=== PATIENT | female | born 1960 | race American Indian/Alaskan Native ===

== ENCOUNTER 2017-03-19 14:53 | Outpatient (CLI) | payer OTHER ==
--- NOTE | 2017-03-19 16:20 | XRay Report ---
KUB: 03/19/17 CLINICAL: Abdominal pain. FINDINGS: Normal bowel gas pattern. No distended bowel and no air-fluid levels. No pneumoperitoneum. A right pelvic phlebolith. No mass or suspicious calcifications. The bones and soft tissues are normal. IMPRESSION: Negative abdomen.
== END 2017-03-19 14:54 | disposition home or self-care (01) ==
LOC: SPVIMAG 14:53
DX: R10.9 Unspecified abdominal pain (principal); I87.8 Other specified disorders of veins
CPT/HCPCS: 74018

== ENCOUNTER 2017-08-18 06:38 | Inpatient (IN) | payer OTHER ==
[2017-08-18] MEDS ORDERED: LIDOCAINE VISCOUS 2% PO ONE (07:25)
[2017-08-18] MEDS ORDERED: ALUM-MAG HYDROX-SIMETH 200-200-20MG/5ML PO ONE (07:26)
--- NOTE | 2017-08-18 07:29 | Emergency Department Report ---
HPI - General Chief Complaint: Allergic Reaction Time Seen by Provider: 08/18/17 07:14 - HPI HPI: 57-year-old female presents to the emergency department with complaint of some possible issues with her acid reflux. Since last night she was "vomiting up some acid" so she took a Zantac at 5 in the morning. Since that time she says she feels a clicking in the neck/throat that worsens when she is walking. She has a history of acid reflux and recently had a EGD and colonoscopy done by a air defense specialist, Dr. Rangel, through [facility]. She was told that she had some type of bacterial infection at that time in the intestines and went on antibiotics that she has since completed. She also is complaining of some bloating last night and took some magnesium citrate but had a satiating bowel movement this morning. She denies any fever, drooling, trismus, chest pain, shortness of breath. Her primary care physician is Dr. Jordan. ED Past Medical Hx - Past Medical History Previous Medical History?: Yes Hx Hypertension: Yes Hx Diabetes: Yes Hx GERD: Yes Additional medical history: High Cholesterol - Surgical History Past Surgical History?: Yes Hx Appendectomy: Yes Additional Surgical History: Hysterectomy, Tubal Ligation - Social History Smoking Status: Never Smoker ED Review of Systems ROS: Stated complaint: THROAT FEELS LIKE CLOSING UP Other details as noted in HPI Comment: All other systems reviewed and negative Constitutional: denies: chills, fever Eyes: denies: eye pain, eye discharge, vision change ENT: throat pain. denies: ear pain Respiratory: denies: cough, shortness of breath, wheezing Cardiovascular: denies: chest pain, palpitations Gastrointestinal: denies: abdominal pain, diarrhea Genitourinary: denies: urgency, dysuria, discharge Musculoskeletal: denies: back pain, joint swelling, arthralgia Skin: denies: rash, lesions Neurological: denies: headache, weakness, paresthesias Physical Exam - Physical Exam Vital Signs: Vital Signs 08/18/17 06:52 Temperature 98.0 F Pulse Rate 100 H Respiratory 20 Rate Blood Pressure 151/82 O2 Sat by Pulse 97 Oximetry Physical Exam: GENERAL: The patient is well-developed well-nourished. HENT: Normocephalic. Atraumatic. Patient has moist mucous membranes. Oropharynx is clear without any tonsillar hypertrophy, erythema or exudates. Mallampati of 1. There is an audible clicking sound heard from somewhere in the lower portion of the neck. No drooling or trismus. EYES: Extraocular motions are intact. Pupils equal reactive to light bilaterally. NECK: Supple. Trachea is midline. CHEST/LUNGS: Clear to auscultation. There is no respiratory distress noted. HEART/CARDIOVASCULAR: Regular. There is no tachycardia. There is no murmur. ABDOMEN: Abdomen is soft, nontender. Patient has normal bowel sounds. There is no abdominal distention. SKIN: Skin is warm and dry. NEURO: The patient is awake, alert, and oriented. The patient is cooperative. The patient has no focal neurologic deficits. The patient has normal speech. MUSCULOSKELETAL: There is no tenderness or deformity. There is no limitation range of motion. There is no evidence of acute injury. ED Course Vital Signs 08/18/17 06:52 Temperature 98.0 F Pulse Rate 100 H Respiratory 20 Rate Blood Pressure 151/82 O2 Sat by Pulse 97 Oximetry ED Medical Decision Making - Lab Data Result diagrams: 08/18/17 07:46 08/18/17 07:43 - Radiology Data Radiology results: image reviewed interpreted by me: Soft tissue of the neck does not show any foreign body or any other acute process. - Medical Decision Making Patient comes in presenting with some difficulty eating and increased acid reflux and most importantly she complains of some type of a clicking sensation in her throat that worsens with any type of exertion. She was seen in the emergency department by the [facility] [place] [facility] and the plan was going to be to do a scope/EGD to evaluate this foreign body sensation. However there was an issue with anesthesia being available so gastroenterology has asked for the patient to be admitted overnight as an observational stay and they will do the scope in the morning. - Differential Diagnosis foreign body, GERD, Malignancy Critical Care Time: No Critical care attestation.: If time is entered above; I have spent that time in minutes in the direct care of this critically ill patient, excluding procedure time. ED Disposition Clinical Impression: Foreign body sensation in throat Disposition: OP ADMIT IP TO THIS HOSP Is pt being admited?: Yes Condition: Stable Time of Disposition: 16:05
[2017-08-18 07:58] LABS: Basophils # (Auto) 0.1 K/mm3 (0.0-0.1); Basophils % (Auto) 0.6 % (0.0-1.8); Eosinophils # (Auto) 0.1 K/mm3 (0.0-0.4); Eosinophils % (Auto) 0.9 % (0.0-4.3); Hemoglobin 14.5 gm/dl (10.1-14.3); Lymphocytes # (Auto) 1.2 K/mm3 (1.2-5.4); Lymphocytes % (Auto) 13.9 % (13.4-35.0); Mean Corpuscular HGB Conc 35 % (30-34); Mean Corpuscular Hemoglobin 31 pg (28-32); Mean Corpuscular Volume 88 fl (79-97); Monocytes # (Auto) 0.5 K/mm3 (0.0-0.8); Monocytes % (Auto) 5.9 % (0.0-7.3); Platelet Count 244 K/mm3 (140-440); Red Blood Count 4.77 M/mm3 (3.65-5.03); Red Cell Distribution Width 13.5 % (13.2-15.2)
[2017-08-18 08:04] LABS: BUN/Creatinine Ratio 13; Blood Urea Nitrogen 10 mg/dL (7-17); Calcium 9.2 mg/dL (8.4-10.2); Hemolysis Index 11
--- NOTE | 2017-08-18 09:55 | XRay Report ---
AP AND LATERAL SOFT TISSUES OF THE NECK: History: Neck pain. The contour of the upper airway appears within normal limits. The epiglottis is not enlarged. No prevertebral soft tissue swelling is apparent. No mass density or foreign body is evident. IMPRESSION: Normal study.
--- NOTE | 2017-08-18 10:45 | Gastroenterology Consultation ---
<PATRICIA BRIGHT - Last Filed: 08/18/17 11:11> History of Present Illness - Reason for Consult Consult date: 08/18/17 GERD,dysphagia, clicking sound in throat Requesting physician: MYRTLE HERRING - History of Present Illness Patient is a 57 y/o female with PMH of HTN, DM, high cholesterol, and chronic GERD who presented to ED with multiple acid reflux related complaints to which GI has been consulted. She reports eating crackers and watermelon yesterday afternoon with the feeling of the food "getting stuck" in her throat along with developing severe regurgitation during the night last night. She states she took a Zantac at 5 am this morning in addition to her daily PPI for symptoms and then developed a "pulsating sensation along with a clicking sound in her throat" that is still present with no alleviating factors. She is followed by Dr. Rangel a assembler lay ups at [facility] with a recent EGD/colonoscopy in 2017. She was told she had a "bacterial infection" in her intestines and was given antibiotics to which she has since completed. Admit to feeling like her throat is dry and that there is still something stuck in it but denies fever, wt loss, CP, SOB, abd pain, N/V, odynophagia, signs of bleeding, or diarrhea. Also reports having some abd bloating and generalized abd discomfort yesterday associated with an episode of constipation to which she took magnesium citrate that resulted with her having a large BM this morning with those symptoms now resolved. Past History Past Medical History: diabetes, GERD, hypertension, other (high cholesterol) Past Surgical History: appendectomy, hysterectomy, Other (tubal ligation) Social history: denies: smoking Medications and Allergies Allergies Allergy/AdvReac Type Severity Reaction Status Date / Time iodine Allergy Rash Verified 08/18/17 06:49 lisinopril Allergy Hives Verified 08/18/17 06:48 shellfish derived Allergy Rash Verified 08/18/17 06:49 Review of Systems - Review of Systems All systems: negative Gastrointestinal: constipation, other (dysphagia, regurgitation, "clicking sound in throat") Exam - Constitutional Vital Signs: Temp Pulse Resp BP Pulse Ox 98.0 F 100 H 20 133/78 97 08/18/17 06:52 08/18/17 06:52 08/18/17 06:52 08/18/17 08:00 08/18/17 08:00 General appearance: no acute distress, obese - EENT Eyes: PERRL, EOM intact ENT: hearing intact - Respiratory Respiratory: bilateral: CTA - Cardiovascular Rhythm: regular Heart Sounds: Present: S1 & S2 - Gastrointestinal General gastrointestinal: Present: soft, non-tender, non-distended, normal bowel sounds - Integumentary Integumentary: Present: warm, dry - Neurologic Neurological: alert and oriented x3 - Labs CBC & Chem 7: 08/18/17 07:46 08/18/17 07:43 Lab Results: Laboratory Results - last 24 hr 08/18/17 08/18/17 08/18/17 07:43 07:46 10:10 WBC 8.7 RBC 4.77 Hgb 14.5 H Hct 42.0 MCV 88 MCH 31 MCHC 35 H RDW 13.5 Plt Count 244 Lymph % (Auto) 13.9 Hale % (Auto) 5.9 Eos % (Auto) 0.9 Baso % (Auto) 0.6 Lymph # 1.2 Hale # 0.5 Eos # 0.1 Baso # 0.1 Seg Neutrophils % 78.7 H Seg Neutrophils # 6.8 Sodium 139 Potassium 3.7 Chloride 99.4 Carbon Dioxide 27 Anion Gap 16 BUN 10 Creatinine 0.8 Estimated GFR > 60 BUN/Creatinine Ratio 13 Glucose 142 H POC Glucose 99 Calcium 9.2 Assessment and Plan 1.dysphagia -patient report a feeling like her food is stuck in her throat along with a pulsating clicking sound in her neck -etiology unclear -neck x-ray- negative -recommend an EGD today for further evaluation -Keep NPO -further recommendations to follow EGD results 2.GERD -continue daily PPI 3.constipation -now resolved -colonoscopy 07/2017 with negative results -recommend Miralax 1-2x/day <BARRETT BERG - Last Filed: 08/18/17 14:59> Exam - Constitutional Vital Signs: Temp Pulse Resp BP Pulse Ox 98.0 F 100 H 20 115/59 96 08/18/17 06:52 08/18/17 06:52 08/18/17 06:52 08/18/17 13:30 08/18/17 13:30 - Labs CBC & Chem 7: 08/18/17 07:46 08/18/17 07:43 Lab Results: Laboratory Results - last 24 hr 08/18/17 08/18/17 08/18/17 07:43 07:46 10:10 WBC 8.7 RBC 4.77 Hgb 14.5 H Hct 42.0 MCV 88 MCH 31 MCHC 35 H RDW 13.5 Plt Count 244 Lymph % (Auto) 13.9 Hale % (Auto) 5.9 Eos % (Auto) 0.9 Baso % (Auto) 0.6 Lymph # 1.2 Hale # 0.5 Eos # 0.1 Baso # 0.1 Seg Neutrophils % 78.7 H Seg Neutrophils # 6.8 Sodium 139 Potassium 3.7 Chloride 99.4 Carbon Dioxide 27 Anion Gap 16 BUN 10 Creatinine 0.8 Estimated GFR > 60 BUN/Creatinine Ratio 13 Glucose 142 H POC Glucose 99 Calcium 9.2 Assessment and Plan Patient seen and examined. Agree with note above. reports dysphagia and clicking sensation in neck. tolerating saliva and liquids. had recent endoscopy without esophageal stricture per pt history (had hiatal hernia). + reflux sx's. will plan for egd in the morning. okay for clears today and npo at midnight.
[2017-08-18] MEDS ORDERED: NACL 0.9% 1000 ML 1,000 ML IV ONE (12:12)
--- NOTE | 2017-08-18 16:19 | History and Physical Report ---
History of Present Illness Chief complaint: My chest hurts, and i feel really weak History of present illness: 57 YO Female with HTN, DM, Obesity, GERD, HLD presents to ED for evaluation. Pt states that she has experienced pain with swallowing for the past 1 day. Pt also acknowledges that she felt symptoms of "heartburn and bloating" overnight. Pt states that she took a Zantac at 5 in the morning without improvement in symptoms. Pt also states that she feels like food "gets caught in her throat" and she feels as if there is a clicking in the neck/throat that worsens when she is walking. Pt is unable to tolerated solid or liquid diet at this time. Pt seen and evaluated in ED and found to have Dysphagia with findings consistent with foreign body obstruction. Pt denies any fever, chills, CP, Palpitations, NVD, drooling, trismus, shortness of breath. Pt admitted to medical floor. GI consulted in ED for endoscopy. Past History Past Medical History: diabetes, GERD, hypertension, other (high cholesterol) Past Surgical History: appendectomy, hysterectomy, Other (tubal ligation) Social history: single. denies: smoking Family history: no significant family history (reviewed) Medications and Allergies Allergies Allergy/AdvReac Type Severity Reaction Status Date / Time iodine Allergy Rash Verified 08/18/17 06:49 lisinopril Allergy Hives Verified 08/18/17 06:48 shellfish derived Allergy Rash Verified 08/18/17 06:49 Review of Systems Constitutional: no weight loss, no weight gain, no fever, no chills Ears, nose, mouth and throat: no ear pain, no ear discharge, no tinnitis, no decreased hearing, no nose pain, no nasal congestion Breasts: no change in shape, no swelling, no mass Cardiovascular: no chest pain, no orthopnea, no palpitations, no rapid/ irregular heart beat Respiratory: no cough, no cough with sputum, no excessive sputum, no hemoptysis , no shortness of breath Gastrointestinal: heartburn, indigestion, dyspepsia/bloating, no abdominal pain , no nausea, no vomiting, no diarrhea, no change in bowel habits, no hematemesis , no coffee ground emesis Genitourinary Female: no pelvic pain, no flank pain, no menorrhagia, no dysuria , no urinary frequency, no urgency Rectal: no pain, no incontinence, no bleeding Musculoskeletal: no neck stiffness, no neck pain, no shooting arm pain, no arm numbness/tingling, no low back pain, no shooting leg pain Integumentary: no rash, no pruritis, no redness, no sores, no wounds Neurological: no transient paralysis, no paralysis, no weakness, no parathesias , no numbness, no tingling, no seizures Psychiatric: no anxiety, no memory loss, no change in sleep habits, no sleep disturbances, no insomnia, no hypersomnia, no change in appetite, no change in libido Endocrine: no cold intolerance, no heat intolerance, no polyphagia, no excessive thirst, no polydipsia, no polyuria, no nocturia, no excessive sweating , no flushing Hematologic/Lymphatic: no easy bruising, no easy bleeding, no lymphadenopathy, no lymphedema Allergic/Immunologic: no urticaria, no allergic rhinitis, no wheezing, no persistent infections, no anaphylaxis Exam - Constitutional Vitals: Temp Pulse Resp BP Pulse Ox 98.0 F 100 H 20 132/72 98 08/18/17 06:52 08/18/17 06:52 08/18/17 06:52 08/18/17 15:45 08/18/17 15:45 General appearance: Present: obese - EENT Eyes: Present: PERRL ENT: hearing intact, clear oral mucosa - Neck Neck: Present: supple, normal ROM - Respiratory Respiratory effort: normal Respiratory: bilateral: CTA - Cardiovascular Heart Sounds: Present: S1 & S2. Absent: rub, click - Extremities Extremities: pulses symmetrical, No edema Peripheral Pulses: within normal limits - Abdominal General gastrointestinal: Present: soft, non-tender, non-distended, normal bowel sounds Female genitourinary: Present: normal - Integumentary Integumentary: Present: clear, warm, dry - Musculoskeletal Musculoskeletal: gait normal, strength equal bilaterally - Psychiatric Psychiatric: appropriate mood/affect, intact judgment & insight - Neurologic Neurologic: CNII-XII intact, moves all extremities Results - Labs CBC & Chem 7: 08/18/17 07:46 08/18/17 07:43 Labs: Abnormal lab results 08/18/17 08/18/17 Range/Units 07:43 07:46 Hgb 14.5 H (10.1-14.3) gm/dl MCHC 35 H (30-34) % Seg Neutrophils % 78.7 H (40.0-70.0) % Glucose 142 H (65-100) mg/dL Assessment and Plan - Patient Problems (1) Foreign body sensation in throat Current Visit: Yes Status: Acute Plan to address problem: GI consulted in ED for endoscopy, IV ppi therapy, bowel rest. (2) HTN (hypertension) Current Visit: Yes Status: Acute Qualifiers: Hypertension type: essential hypertension Qualified Code(s): I10 - Essential (primary) hypertension Plan to address problem: IV hydralazine prn (3) Diabetes Current Visit: Yes Status: Acute Plan to address problem: ADA diet, insulin, accu check (4) HLD (hyperlipidemia) Current Visit: Yes Status: Acute Qualifiers: Hyperlipidemia type: mixed hyperlipidemia Qualified Code(s): E78.2 - Mixed hyperlipidemia Plan to address problem: Low cholesterol diet, statin therapy as indicated. (5) DVT prophylaxis Current Visit: Yes Status: Acute Plan to address problem: SCD to ble while in bed
[2017-08-18] MEDS ORDERED: ZOFRAN IV PRN (16:39)
[2017-08-18] MEDS ORDERED: PROVENTIL IH PRN (16:39)
[2017-08-18] MEDS ORDERED: SODIUM CHLORIDE FLUSH SYRINGE 10 ML IV PRN (16:39)
[2017-08-18] MEDS ORDERED: MORPHINE IV PRN (17:33)
[2017-08-18] MEDS ORDERED: ATIVAN IV PRN (17:33)
[2017-08-18] MEDS: PROTONIX IV SCH ×2 (17:40→23:24)
[2017-08-18] MEDS ORDERED: SODIUM CHLORIDE FLUSH SYRINGE 10 ML IV SCH (22:00)
[2017-08-19] MEDS ORDERED: NACL 0.9% 1000 ML 1,000 ML ONE (07:03)
[2017-08-19] MEDS ORDERED: WATER FOR IRRIG STERILE IR ONE ×2 (07:03→11:01)
--- NOTE | 2017-08-19 09:35 | Anesthesia Consultation ---
Anesthesia Consult and Med Hx Date of service: 08/19/17 - Airway Anesthetic Teeth Evaluation: Good ROM Head & Neck: Adequate Mental/Hyoid Distance: Adequate Mallampati Class: Class II Intubation Access Assessment: Probably Good - Pre-Operative Health Status ASA Pre-Surgery Classification: ASA3 Proposed Anesthetic Plan: MAC - Cardiovascular System Hx Hypertension: Yes - Gastrointestinal Hx Gastroesophageal Reflux Disease: Yes (dysphagea) - Endocrine Hx Non-Insulin Dependent Diabetes: Yes - Other Systems Hx Obesity: Yes
[2017-08-19] MEDS ORDERED: LOPRESSOR IV ONE (09:36)
--- NOTE | 2017-08-19 09:36 | Anesthesia Day of Surgery ---
Anesthesia Day of Surgery - Day of Surgery Patient Examined: Yes Patient H&P Reviewed: Yes Patient is NPO: Yes Beta Blockers: Yes (given in pre-op)
[2017-08-19] MEDS ORDERED: DIPRIVAN 10 MG/ML IV ONE (10:59)
--- NOTE | 2017-08-19 11:19 | Post Operative Note ---
Pre-op diagnosis: dysphagia Post-op diagnosis: other (normal) Findings: 1. Normal upper endoscopy Procedure: EGD Anesthesia: MAC Surgeon: BARRETT BERG Estimated blood loss: none Pathology: none Condition: stable Disposition: floor
--- NOTE | 2017-08-19 11:24 | Operative Report ---
Operative Report Operative Report: Esophagogastroduodenoscopy Procedure Note Date of procedure: 08/19/2017 Endoscopist: Harvey Ortiz Pre-op diagnosis: dysphagia Post-op diagnosis: normal upper endoscopy Anesthesia: MAC Complications: No immediate complications Estimated blood loss: minimal Procedure: After consent was obtained, the patient was placed in the left lateral decubitus position. The fujinon endoscope was inserted into the patient 's mouth under direct vision, and advanced to the 2nd portion of duodenum without difficulty. The patient tolerated the procedure well. The views of the mucosa were good. Patient's vital signs were monitored continuously throughout the procedure. Findings: Unremarkable upper endoscopy. No esophageal abnormalities. Impression: 1. Unremarkable upper endoscopy Recommendations: -okay to restart diet and advance as tolerated -pt can be discharged from GI stand point Will sign off, please call as needed or with questions.
[2017-08-19] MEDS: PROTONIX IV SCH (13:34)
--- NOTE | 2017-08-19 15:07 | Discharge Summary ---
Providers - Providers Date of Admission: 08/18/17 16:39 Date of discharge: 08/19/17 Attending physician: CARIN OLIVEIRA Primary care physician: AIRPORT GUIDE Hospitalization Condition: Stable Hospital course: 57 YO Female with HTN, DM, Obesity, GERD, HLD presents to ED for evaluation. Pt states that she has experienced pain with swallowing for the past 1 day Discharge diagnosis: 1. Oropharyngeal dysphagia - s/p EGD, no abnormality found 2. HTN 3. DM 4. GERD 5. HLD Disposition: - TO HOME OR SELFCARE Time spent for discharge: 32 minutes Core Measure Documentation - Palliative Care Palliative Care/ Comfort Measures: Not Applicable - Core Measures Any of the following diagnoses?: none Exam - Constitutional Vitals: Temp Pulse Resp BP Pulse Ox 97.5 F L 80 18 125/55 100 08/19/17 13:42 08/19/17 13:42 08/19/17 13:42 08/19/17 13:42 08/19/17 13:42 General appearance: Present: no acute distress, obese - EENT Eyes: Present: PERRL ENT: hearing intact, clear oral mucosa - Neck Neck: Present: supple, normal ROM - Respiratory Respiratory effort: normal Respiratory: bilateral: CTA - Cardiovascular Heart Sounds: Present: S1 & S2. Absent: rub, click - Extremities Extremities: pulses symmetrical, No edema Peripheral Pulses: within normal limits - Abdominal General gastrointestinal: Present: soft, non-tender, non-distended, normal bowel sounds - Integumentary Integumentary: Present: clear, warm, dry - Musculoskeletal Musculoskeletal: gait normal, strength equal bilaterally - Psychiatric Psychiatric: appropriate mood/affect, intact judgment & insight - Neurologic Neurologic: CNII-XII intact, moves all extremities Plan Activity: advance as tolerated Weight Bearing Status: Weight Bear as Tolerated Diet: diabetic Additional Instructions: F/u with PCP in one week. Follow up with: PRIMARY CARE, [Primary Care Provider] - 3-5 Days
[2017-08-19 15:50] VITALS: BP 123/67
== END 2017-08-19 15:45 | disposition home or self-care (01) | DRG 392 ==
LOC: ED 06:38 → 3A 16:39
PROVIDERS: ADMIT Internal Medicine; ATTEND Internal Medicine
PROC: 0DJ08ZZ Inspection of Upper Intestinal Tract, Via Natural or Artificial Opening Endoscopic (ICD-10-PCS; principal; 2017-08-19)
DX: R13.12 Dysphagia, oropharyngeal phase (principal); Z88.8 Allergy status to other drugs, medicaments and biological substances; Z88.3 Allergy status to other anti-infective agents; Z91.013 Allergy to seafood; K21.9 Gastro-esophageal reflux disease without esophagitis; E11.9 Type 2 diabetes mellitus without complications; I10 Essential (primary) hypertension; E78.00 Pure hypercholesterolemia, unspecified; Z98.51 Tubal ligation status; Z90.710 Acquired absence of both cervix and uterus; E66.9 Obesity, unspecified; Z68.38 Body mass index [BMI] 38.0-38.9, adult; R09.89 Other specified symptoms and signs involving the circulatory and respiratory systems
CPT/HCPCS: 36415; 70360; 80048; 82962; 85025; 96361; 96374; C9113; J2704; J7030